=== PATIENT | male | born 1955 | race Hispanic/Latino ===

== ENCOUNTER → 2023-03-31 | Day surgery (SDC) | payer BC, MEDICARE ==
[~2023-03-31] MED LIST: ASPIRIN EC81 MG PO; ATORVASTATIN CA40 MG PO; BENICAR20 MG PO; CARVEDILOL12.5 MG PO; DOCUSATE SODIU100 MG PO; FEROSUL325 MG PO; FLOMAX0.4 MG PO; FUROSEMIDE40 MG PO; HUMALOG MI100 UNIT/2 SQ; LACTATED RINGER'S 1,000 ML ONE; LANTUS 3ML100 UNITS/ SC; MAGNESIUM OXID400 MG PO; MIRTAZAPINE15 MG PO; NIFEDIPINE10 MG PO; PROPOFOL IV EMULSION 50 ML IV ONE; PROTONIX20 MG PO
[2023-03-31 10:34] VITALS: TEMP 97
[2023-03-31 10:50] VITALS: BP 125/70; PULSE 50; RESP 16; O2SAT 98
== END | disposition home or self-care (01) ==
LOC: OR 09:13
PROVIDERS: ATTEND Internal Medicine Gastroenterology
DX: K92.1 Melena (principal); K21.9 Gastro-esophageal reflux disease without esophagitis; K29.50 Unspecified chronic gastritis without bleeding; K31.89 Other diseases of stomach and duodenum; K44.9 Diaphragmatic hernia without obstruction or gangrene; T18.2XXA Foreign body in stomach, initial encounter; W44.F3XA Food entering into or through a natural orifice, initial encounter; D50.9 Iron deficiency anemia, unspecified; I10 Essential (primary) hypertension; E11.9 Type 2 diabetes mellitus without complications; Z79.4 Long term (current) use of insulin; Z79.899 Other long term (current) drug therapy; Z79.82 Long term (current) use of aspirin
CPT/HCPCS: 36415; 43239; 82948; 88305; 88342; J2704; J7121

== ENCOUNTER → 2023-08-11 | Day surgery (SDC) | payer BC, MEDICARE ==
[~2023-08-11] MED LIST changes: +EPHEDRINE SULFATE INJ 50 MG/ML VIAL ONE; +FENTANYL CITRATE/PF 100MCG/2 ML INJ ONE; -LACTATED RINGER'S 1,000 ML ONE; +LIDOCAINE HCL 2% LOCAL INJ 5 ML SDV VIAL INJ ONE; +MIDAZOLAM HCL 2 MG/2 ML VIAL ONE; +PROPOFOL IV EMULSION 10 MG/ML 20 ML VIAL ONE; -PROPOFOL IV EMULSION 50 ML IV ONE
[2023-08-11 07:21] LABS: INR 1.04; PROTHROMBIN TIME 13.8 seconds (11.9-14.5)
[2023-08-11 07:22] LABS: PARTIAL THROMBOPLASTIN TIME 34.2 seconds (23.8-35.5)
[2023-08-11 07:24] LABS: ANION GAP 15.5 mmol/L (8-16); CALCIUM 9.1 mg/dL (8.4-10.2); CREATININE, SERUM 3.06 mg/dL (0.72-1.25); POTASSIUM 4.5 mmol/L (3.5-5.1)
[2023-08-11] MEDS: LACTATED RINGER'S 1,000 ML ONE (09:47)
[2023-08-11 11:28] VITALS: TEMP 97.3
[2023-08-11 11:52] VITALS: BP 132/87; PULSE 54; RESP 18; O2SAT 96
== END | disposition home or self-care (01) ==
LOC: OR 06:50
PROVIDERS: ATTEND Internal Medicine Gastroenterology
DX: K29.60 Other gastritis without bleeding (principal); K29.50 Unspecified chronic gastritis without bleeding; K21.9 Gastro-esophageal reflux disease without esophagitis; K44.9 Diaphragmatic hernia without obstruction or gangrene; K31.89 Other diseases of stomach and duodenum; K59.00 Constipation, unspecified; D50.9 Iron deficiency anemia, unspecified; E11.9 Type 2 diabetes mellitus without complications; I10 Essential (primary) hypertension; E78.5 Hyperlipidemia, unspecified; Z79.82 Long term (current) use of aspirin; Z79.4 Long term (current) use of insulin; Z79.899 Other long term (current) drug therapy
CPT/HCPCS: 36415; 43239; 80048; 82948; 85610; 85730; J2001; J2250; J2704; J3010; J7121

== ENCOUNTER → 2024-05-16 | Outpatient (REF) | payer MEDICARE ==
[~2024-05-16] MED LIST changes: -EPHEDRINE SULFATE INJ 50 MG/ML VIAL ONE; -FENTANYL CITRATE/PF 100MCG/2 ML INJ ONE; -LIDOCAINE HCL 2% LOCAL INJ 5 ML SDV VIAL INJ ONE; -MIDAZOLAM HCL 2 MG/2 ML VIAL ONE; -PROPOFOL IV EMULSION 10 MG/ML 20 ML VIAL ONE
== END ==
LOC: DX 08:42
PROVIDERS: ATTEND Nurse Practitioner Family
DX: D50.9 Iron deficiency anemia, unspecified (principal)
CPT/HCPCS: 74250